=== PATIENT | male | born 1980 | race Caucasian/White ===

== ENCOUNTER → 2018-07-25 | Outpatient (CLI) | payer OTHER ==
--- NOTE | 2018-07-25 10:46 | XR ---
EXAM TYPE: LUMBAR SPINE X RAY SERIES COMPARISON: NONE HISTORY: Pain TECHNIQUE: 3 views are submitted. FINDINGS: Alignment is anatomic. The pedicles are intact. The transverse processes are intact. There is no s pondylolysis or spondylolisthesis. Hypertrophic spurring noted anteriorly. There are vascular calcif ications. IMPRESSION: 1. Multilevel hypertrophic spurring correlate with MRI as clinically warranted.
== END | disposition home or self-care (01) ==
LOC: RADXRMAIN 10:05
PROVIDERS: ATTEND Internal Medicine
DX: M53.86 Other specified dorsopathies, lumbar region (principal); M53.3 Sacrococcygeal disorders, not elsewhere classified
CPT/HCPCS: 72100

== ENCOUNTER → 2018-07-29 | Outpatient (CLI) | payer OTHER ==
--- NOTE | 2018-07-29 08:36 | MR ---
EXAMINATION TYPE: MR lumbar spine wo con DATE OF EXAM: 07/29/2018 COMPARISON: MR spine x-ray from 4 days ago. HISTORY: Low back pain TECHNIQUE: Multiplanar, multisequence imaging of the lumbar spine is performed without IV contrast. FINDINGS: Sagittal images of the lumbar spine show vertebral body heights and alignment to appear sat isfactory. There is disc desiccation L3-L4 and L4-L5 levels with mild disc space narrowing L3-L4 leve l. The conus medullaris is normal in position and signal ending mid L1 level. Heterogeneous endplate changes are identified. Mild multilevel anterior spurring. Large hemangioma L4 vertebra seen sagitta l image 5. Axial images shows the T12-L1, L1-L2, and L2-L3 levels all to appear within normal limits. Axial images at the L3-L4 level show moderate broad disc bulge effacing anterior thecal sac and causi ng mild left and moderate right-sided anterior inferior neural foraminal narrowing. Axial images at the L4-L5 level show mild/moderate broad-based posterior disc protrusion mildly effac ing anterior thecal sac with mild facet degenerative changes bilaterally and mild left greater than r ight bilateral anterior inferior neural foraminal narrowing. Axial images at the L5-S1 level show mild facet degenerative changes bilaterally. Spinal canal is pre served. Bilateral neural foramina are patent. No suspicious incidental retroperitoneal findings. IMPRESSION: Some multilevel degenerative changes L3-L4 and L4-L5 level as detailed above.
== END | disposition home or self-care (01) ==
LOC: RADMRIMAIN 06:15
PROVIDERS: ATTEND Internal Medicine
DX: M43.06 Spondylolysis, lumbar region (principal)
CPT/HCPCS: 72148

== ENCOUNTER → 2018-08-15 | Outpatient (CLI) | payer OTHER ==
--- NOTE | 2018-08-15 23:27 | MR ---
EXAMINATION TYPE: MR cervical spine wo con DATE OF EXAM: 08/15/2018 COMPARISON: None HISTORY: neck pain since 1995, pain and weakness down both arms TECHNIQUE: Multiplanar, multisequence images of the cervical spine were acquired. Cervical vertebra have normal alignment. There is degenerative disc space narrowing at C5-6 with decr eased signal in the disc. There is increased signal in the C5 and C6 vertebral bodies. There is a sma ll posterior central disc herniation at C5-6 and C4-5. The spinal canal is narrowed to 7 mm at C5-6. Brainstem is intact. There is no cervical paraspinal mass. There is neural foraminal impingement and right-sided disc herniation at C5-6. IMPRESSION: There is posterior central and right-sided C5-6 disc herniation with neural foraminal impingement. Degenerative disc space narrowing at C5-6. No fracture. Mild edema consistent with reactive changes in the C5 and C6 vertebral bodies.
== END | disposition home or self-care (01) ==
LOC: RADMRIMAIN 18:45
PROVIDERS: ATTEND Internal Medicine
DX: M99.71 Connective tissue and disc stenosis of intervertebral foramina of cervical region (principal); M50.222 Other cervical disc displacement at C5-C6 level
CPT/HCPCS: 72141

== ENCOUNTER → 2019-10-26 | Outpatient (CLI) | payer OTHER ==
--- NOTE | 2019-10-26 11:19 | XR ---
EXAMINATION TYPE: XR hand complete RT DATE OF EXAM: 10/26/2019 COMPARISON: NONE HISTORY: Pain TECHNIQUE: Three views are submitted. FINDINGS: The osseous structures are intact. The joint spaces are preserved and there is no acute fracture or dislocation. Calcification adjacent to the ulnar styloid incidentally noted. IMPRESSION: 1. No definite acute fracture or dislocation if symptoms persist, follow-up study in 7 to 10 days wo uld be suggested
[2019-10-26 16:53] LABS: C Reactive Protein <0.4 mg/dL (0.0-0.8); Rheumatoid Factor, Qnt 7 IU/mL (0-15)
== END | disposition home or self-care (01) ==
LOC: LABWHC1 10:42
PROVIDERS: ATTEND Psychiatry & Neurology Pain Medicine
DX: M79.641 Pain in right hand (principal); M25.50 Pain in unspecified joint; R53.82 Chronic fatigue, unspecified
CPT/HCPCS: 36415; 85652; 86038; 86140; 86431

== ENCOUNTER 2020-10-21 20:45 | Emergency (ER) | payer OTHER ==
[2020-10-21 21:14] VITALS: BP 135/82; PULSE 92; RESP 20; TEMP 98.2
[2020-10-21] MEDS ORDERED: KETOROLAC 15 MG/ML 1 ML VIAL IM STA (21:26)
--- NOTE | 2020-10-21 22:27 | XR ---
EXAMINATION TYPE: XR hand complete LT DATE OF EXAM: 10/21/2020 COMPARISON: NONE HISTORY: Pain TECHNIQUE: 3 views FINDINGS: There is nondisplaced transverse fracture across the base of the third metacarpal. The fing ers appear intact. Carpal bones are intact. There are no erosions. IMPRESSION: Acute third metacarpal nondisplaced fracture.
--- NOTE | 2020-10-21 22:36 | ED ---
Fall HPI - General Chief Complaint: Fall Stated Complaint: L hand injury Time Seen by Provider: 10/21/20 21:18 Source: patient, RN notes reviewed Mode of arrival: ambulatory - History of Present Illness Initial Comments: Patient is a 40-year-old male that presents to emergency room complaining of left hand pain. He notes he was taking his fifth wheel hitch out of his truck when he tripped over it falling landing on his left hand. He notes he has left hand pain at the third fourth and fifth knuckles. Patient notes that he takes at home pain medications but has not taken anything since about 1 PM today. He noted he came in for evaluation and x-rays. Patient was otherwise a well- appearing 40-year-old male in no apparent distress or pain. He denied any chest pain shortness breath headache nausea vomiting diarrhea constipation fever fatigue chills. - Related Data Home Medications Medication Instructions Recorded Confirmed Montelukast [Singulair] 10 mg PO HS 04/27/14 02/19/15 Previous Rx's Medication Instructions Recorded Albuterol Inhaler (Mhu) [Ventolin 1 - 2 puff INHALATION Q6HR #1 04/27/14 Hfa Inhaler (Mhu)] inhaler Beclomethasone Dipropionate [Qvar 1 puff INHALATION BID #1 inhaler 04/29/14 80 mcg/puff] Ibuprofen [Motrin] 800 mg PO Q8HR PRN #30 tab 02/19/15 Allergies Allergy/AdvReac Type Severity Reaction Status Date / Time No Known Allergies Allergy Verified 10/21/20 21:14 Review of Systems ROS Statement: Those systems with pertinent positive or pertinent negative responses have been documented in the HPI. ROS Other: All systems not noted in ROS Statement are negative. Past Medical History Past Medical History: Asthma Additional Past Medical History / Comment(s): kidney stones History of Any Multi-Drug Resistant Organisms: None Reported Past Surgical History: Orthopedic Surgery Additional Past Surgical History / Comment(s): cataract surgery right eye Past Psychological History: No Psychological Hx Reported Smoking Status: Current every day smoker Past Alcohol Use History: Occasional Past Drug Use History: None Reported General Exam Limitations: no limitations General appearance: alert, in no apparent distress Head exam: Present: atraumatic, normocephalic, normal inspection Eye exam: Present: normal appearance, PERRL, EOMI. Absent: scleral icterus, conjunctival injection, periorbital swelling Neck exam: Present: normal inspection Respiratory exam: Present: normal lung sounds bilaterally. Absent: respiratory distress, wheezes, rales, rhonchi, stridor Cardiovascular Exam: Present: regular rate, normal rhythm, normal heart sounds. Absent: systolic murmur, diastolic murmur, rubs, gallop, clicks Left Hand Wrist exam: Present: full ROM, tenderness (Over the third fourth and fifth carpal), swelling (Animal to the dorsum of the hand), deformity (Over the third fourth and fifth metacarpals.). Absent: normal inspection, abrasion Neurological exam: Present: alert, oriented X3 Psychiatric exam: Present: normal affect, normal mood Skin exam: Present: warm, dry, intact, normal color. Absent: rash Course Vital Signs 10/21/20 21:10 Temperature 98.2 F Pulse Rate 92 Respiratory 20 Rate Blood Pressure 135/82 O2 Sat by Pulse 99 Oximetry Procedures - Orthopedic Splinting/Casting Injury #1 Side: left Upper Extremity Injury Location: hand Upper Extremity Immobilizer: volar splint, Vicente wrap, synthetic pre-padded splint Medical Decision Making - Medical Decision Making 40-year-old male that tripped and fell injuring his left hand. X-ray of the left hand, 50 mg of Toradol ordered. X-ray shows a nondisplaced proximal third metacarpal fracture of the left hand. Patient tolerated splinting well. Case discussed with Dr. Conway, patient discharge home with follow-up with orthopedic. - Radiology Data Radiology results: report reviewed, image reviewed X-ray left hand: Acute third metacarpal nondisplaced fracture. Disposition Clinical Impression: Fracture of third metacarpal bone of left hand, Fall Disposition: HOME SELF-CARE Condition: Stable Instructions (If sedation given, give patient instructions): Fall Prevention (ED) Additional Instructions: Please return to the Emergency Department if symptoms worsen or any other concerns. Follow-up primary care 1-2 days. Follow-up with orthopedics next 1-2 days. Continue take at home medications as prescribed. Keep splint on throughout the day Is patient prescribed a controlled substance at d/c from ED?: No Referrals: Jennifer Wood MD [Primary Care Provider] - 1-2 days Chris Corcoran MD [Medical Doctor] - 1-2 days Time of Disposition: 23:17
== END 2020-10-21 23:24 | disposition home or self-care (01) ==
LOC: EC 20:45
DX: S62.303A Unspecified fracture of third metacarpal bone, left hand, initial encounter for closed fracture (principal); J45.909 Unspecified asthma, uncomplicated; F17.200 Nicotine dependence, unspecified, uncomplicated; Z79.1 Long term (current) use of non-steroidal anti-inflammatories (NSAID); Z79.51 Long term (current) use of inhaled steroids; W01.0XXA Fall on same level from slipping, tripping and stumbling without subsequent striking against object, initial encounter
CPT/HCPCS: 73130; 29125; 96372; 99284; J1885

== ENCOUNTER 2020-10-26 15:01 | Emergency (ER) | payer OTHER ==
[2020-10-26 15:05] VITALS: BP 126/86; PULSE 95; RESP 18; TEMP 97.7
[2020-10-26] MEDS ORDERED: DIPH,PERTUS(ACELL)TETVAC-LF 0.5 ML VIAL IM ONE (15:25)
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
== END 2020-10-26 15:48 | disposition home or self-care (01) ==
LOC: EC 15:01
DX: T23.271A Burn of second degree of right wrist, initial encounter (principal); J45.909 Unspecified asthma, uncomplicated; F17.200 Nicotine dependence, unspecified, uncomplicated; Z79.1 Long term (current) use of non-steroidal anti-inflammatories (NSAID); Z79.51 Long term (current) use of inhaled steroids; Z79.899 Other long term (current) drug therapy
CPT/HCPCS: 16020; 90471; 90715; 99283

== ENCOUNTER → 2024-01-25 | Outpatient (CLI) | payer OTHER ==
--- NOTE | 2024-01-26 22:53 | US ---
EXAMINATION TYPE: US venous doppler duplex LE BI DATE OF EXAM: 01/25/2024 9:08 AM COMPARISON: NONE CLINICAL INDICATION: Male, 43 years old with history of R20.0 LEG NUMBNESS; No redness or swelling. , Pain TECHNIQUE: The lower extremity deep venous system is examined utilizing real time linear array sonog jorge with graded compression, color doppler sonography, and spectral doppler. SIDE PERFORMED: Bilateral FINDINGS: VESSELS IMAGED: Common Femoral Vein Deep Femoral Vein Greater Saphenous Vein * Femoral Vein Popliteal Vein Small Saphenous Vein * Proximal Calf Veins (* superficial vessels) Right Leg: Negative for DVT, Color Doppler imaging shows patency of the vessels. Spectral waveforms are within normal limits. Left Leg: Negative for DVT, Color Doppler imaging shows patency of the vessels. Spectral waveforms a re within normal limits. IMPRESSION: 1. Bilateral lower extremity ultrasound negative for deep venous thrombosis. [facility], , 01/26/2024 10:51 PM
--- NOTE | 2024-01-26 23:20 | US ---
EXAMINATION TYPE: US arterial LE multi level DATE OF EXAM: 01/25/2024 9:32 AM COMPARISONS: None. CLINICAL INDICATION: Male, 43 years old with history of R20.0 BILAT NUMBNESS OF LEGS; TECHNIQUE: Systolic pressures were taken of the upper and lower extremity arteries with ankle-brachia l indices and toe brachial indices calculated bilaterally. History of: Smoker: Current Smoker Hypertension: Takes medication Diabetic: No Hyperlipidemia: Yes TIA/CVA: No Previous Vascular Surgery: No CAD: No DC: No Vascular Ulcers: No Claudication: Left Gangrene: No FINDINGS: Doppler Waveforms: Right: Left: Pressure Gradients: Brachial Artery systolic pressure: Right: 105 Left: 110 Posterior Tibial artery systolic pressure: Right: 120 Left: 80 Dorsalis Pedis artery systolic pressure: Right: 127 Left: 72 Ankle-Brachial Indices: Right: 1.2 Left: 0.7 (Vessel hardening > 1.4; Normal 0.9 - 1.4, Moderate 0.7 - 0.9, Severe 0.5-0.7) IMPRESSION: 1. There is monophasic waveforms on the left from the femoral artery to the dorsalis pedis and pay clerk ior tibial arteries. Ratio is 0.73 with the dorsalis pedis ratio noted at 0.65. Findings are suggesti ve of moderate severe stenosis. Consider CTA runoff for additional evaluation. 2. Right lower extremity arterial ratios appear normal. [facility], , 01/26/2024 11:18 PM
== END | disposition home or self-care (01) ==
LOC: RADUSWWP 08:35
PROVIDERS: ATTEND Family Medicine
DX: E78.5 Hyperlipidemia, unspecified (principal); R20.0 Anesthesia of skin; I10 Essential (primary) hypertension
CPT/HCPCS: 93923; 93970